=== PATIENT | female | born 1940 | race Caucasian/White ===

== ENCOUNTER 2017-07-21 16:33 | Emergency (ER) | payer MEDICARE ==
[2017-07-21 17:56] LABS: ABSOLUTE BASOPHILS # (AUTO) 0.1 10^3/uL (0.0-0.2); ABSOLUTE EOSINOPHILS # (AUTO) 0.1 10^3/uL (0.0-0.6); ABSOLUTE LYMPHOCYTES (AUTO) 1.2 10^3/uL (0.5-4.7); ABSOLUTE MONOCYTES (AUTO) 0.6 10^3/uL (0.1-1.4); ABSOLUTE NEUT (AUTO) 6.3 10^3/uL (1.7-8.2); BASOPHILS % (AUTO) 0.9 % (0-2); EOSINOPHILS % (AUTO) 1.8 % (0-6); HEMATOCRIT 22.8 % (36.0-47.0); MEAN CORPUSCULAR HEMOGLOBIN 28.7 pg (27.0-33.4); MEAN CORPUSCULAR HGB CONC 32.8 g/dL (32.0-36.0); MEAN CORPUSCULAR VOLUME 88 fl (80-97); MONOCYTES % (AUTO) 7.8 % (3-13); PLATELET COUNT 281 10^3/uL (150-450); RED BLOOD COUNT 2.61 10^6/uL (3.72-5.28); RED CELL DISTRIBUTION WIDTH 19.3 % (11.5-14.0); SEGMENTED NEUTROPHILS % (AUTO) 75.5 % (42-78); TOTAL CELLS COUNTED % (AUTO) 100 %; WHITE BLOOD COUNT 8.3 10^3/uL (4.0-10.5)
[2017-07-21 17:59] LABS: HEMOGLOBIN 7.5 g/dL (12.0-15.5)
[2017-07-21 18:10] LABS: ALANINE AMINOTRANSFERASE 39 U/L (9-52); ALBUMIN 1.5 g/dL (3.5-5.0); ALKALINE PHOSPHATASE 120 U/L (38-126); ASPARTATE AMINO TRANSFERASE 32 U/L (14-36); BILIRUBIN,DIRECT 0.2 mg/dL (0.0-0.4); BILIRUBIN,TOTAL 0.2 mg/dL (0.2-1.3); BLOOD UREA NITROGEN 14 mg/dL (7-20); CALCIUM 7.5 mg/dL (8.4-10.2); GLUCOSE 67 mg/dL (75-110); TOTAL PROTEIN 4.6 g/dL (6.3-8.2)
[2017-07-21 18:17] LABS: ANION GAP 1 (5-19); CARBON DIOXIDE 28 mmol/L (22-30); CHLORIDE 111 mmol/L (98-107); POTASSIUM 5.3 mmol/L (3.6-5.0); SODIUM 140.4 mmol/L (137-145)
[2017-07-21 19:33] LABS: AMORPHOUS SEDIMENT,URINE TRACE /HPF; APPEARANCE,URINE CLOUDY; BILIRUBIN,URINE NEGATIVE (NEGATIVE); COLOR,URINE AMBER; GLUCOSE, URINE NEGATIVE (NEGATIVE); KETONES,URINE NEGATIVE (NEGATIVE); LEUKOCYTE ESTERASE,URINE MODERATE (NEGATIVE); NITRITE,URINE NEGATIVE (NEGATIVE); PROTEIN,URINE NEGATIVE (NEGATIVE); URINE SPECIFIC GRAVITY 1.012; UROBILINOGEN,URINE NEGATIVE mg/dL (<2.0)
--- NOTE | 2017-07-21 20:35 | ER Document Report ---
ED General - General Mode of Arrival: Medic Information source: Patient, Relative <CARMEN JOSEPH - Last Filed: 07/21/17 22:04> <DIAMOND HOFF - Last Filed: 07/22/17 00:49> <ANDREW CISNEROS - Last Filed: 07/22/17 03:38> - General Chief Complaint: Abnormal Lab Results Stated Complaint: ABNORMAL LABS Time Seen by Provider: 07/21/17 18:35 Notes: 77 y.o female with a PMHx of hernia repair, trapped bowel and bowel surgery , diverticulitis, chronic diarrhea for the past 4 months and stomach ulcers presents to the ED with abnormal lab results showing that she was anemic. Pt denies any known sources of bleeding. Daughter at bedside states that this started with stomach surgery after which she became septic and hospitalized at [facility]. Pt complains of bilateral leg pain and pack pain which she reports is chronic. Pt denies any abd pain or fever. She admits to some intermittent trouble breathing that hasn't really bothered her. Pt does not have any complaints for any new sx. Pt is usually on 4 liters of oxygen. ( CARMEN JOSEPH) - Related Data Allergies/Adverse Reactions: aspirin Allergy (Verified 07/21/17 18:54) NSAIDS (Non-Steroidal Anti-Inflamma Allergy (Verified 07/21/17 18:54) Past Medical History - General Information source: Patient, Relative - Social History Smoking Status: Former Smoker Patient has suicidal ideation: No Patient has homicidal ideation: No - Past Medical History Cardiac Medical History: Reports: Hx Hypertension Pulmonary Medical History: Reports: Hx COPD Endocrine Medical History: Reports: Hx Diabetes Mellitus Type 2 Renal/ Medical History: Denies: Hx Peritoneal Dialysis Past Surgical History: Reports: Hx Abdominal Surgery - Hernia repair x3, Hx Cholecystectomy <CARMEN JOSEPH - Last Filed: 07/21/17 22:04> - Social History Family History: Reviewed & Not Pertinent <ANDREW CISNEROS - Last Filed: 07/22/17 03:38> Review of Systems - Review of Systems Constitutional: See HPI. denies: Fever EENT: No symptoms reported Cardiovascular: No symptoms reported Respiratory: See HPI, Short of breath Gastrointestinal: See HPI. denies: Abdominal pain Genitourinary: No symptoms reported Female Genitourinary: No symptoms reported Musculoskeletal: See HPI, Back pain, Other - Bilat lower extremity pain Skin: No symptoms reported Hematologic/Lymphatic: See HPI, Other - abnormal lab results showing anemia Neurological/Psychological: No symptoms reported -: Yes All other systems reviewed and negative <CARMEN JOSEPH - Last Filed: 07/21/17 22:04> Physical Exam - Vital signs Interpretation: Hypotensive, Tachycardic - General General appearance: Alert In distress: Mild - Respiratory Respiratory status: No respiratory distress Breath sounds: Decreased air movement, Rales - at bases b/l - Cardiovascular Rhythm: Regular, Tachycardia - Abdominal Inspection: Normal, Obese, Other - Healing incision, no erythema or fluctuance - Rectal Tenderness: No Stool: Heme negative - Back Back: Other - Sacral decubitus ulcer, dressed - Extremities General upper extremity: Normal inspection General lower extremity: Edema - b/l - Neurological Neuro grossly intact: Yes Cognition: Normal Orientation: AAOx4 Ariel Coma Scale Eye Opening: Spontaneous Ariel Coma Scale Verbal: Oriented Yola Coma Scale Motor: Obeys Commands Yola Coma Scale Total: 15 Speech: Normal Motor strength normal: LUE, RUE, LLE, RLE Sensory: Normal - Skin Skin Color: Pale <ANDREW CISNEROS - Last Filed: 07/22/17 03:38> - Vital signs Vitals: Pulse Ox 100 07/21/17 17:41 Course - Laboratory Result Diagrams: 07/21/17 17:40 07/21/17 17:40 <CARMEN JOSEPH - Last Filed: 07/21/17 22:04> - Laboratory Result Diagrams: 07/21/17 17:40 07/21/17 17:40 <DIAMOND HOFF - Last Filed: 07/22/17 00:49> - Laboratory Result Diagrams: 07/22/17 01:43 07/21/17 17:40 - Diagnostic Test Radiology reviewed: Reports reviewed <ANDREW CISNEROS - Last Filed: 07/22/17 03:38> - Re-evaluation Re-evalutation: 07/21/17 21:35 Discussed pt with [employer]. (CARMEN JOSEPH) 07/22/17 21:45 Rell requests surgery be consulted/admit 07/22/17 21:55 Rosanne states patient should be transferred back to [facility] 07/22/17 22:10 Call back to [facility] about potential transfer 07/22/17 00:45 at [facility] accepts patient but there are no beds (DIAMOND HOFF) 07/22/17 01:00 Patient is a 77-year-old female with a recent complicated hospital course who presents due to anemia on outpatient blood work. Patient was admitted at [facility] in March for strangulated bowel and hernia repair. She was readmitted in June after developing an intraperitoneal abscess. Patient's hemoglobin at the time of discharge was 6.9. Patient was sent in this evening for an outpatient hemoglobin of 6.5. Here it is 7.5. Patient has been hypotensive. She is stable at rest on her nasal cannula of 2 L. She is on Eliquis for a DVT. She does not have any abdominal pain but is complaining of back pain. UTI and urinalysis. CT was performed and is showing a fluid collection in the perirenal space on the left, concerning for possible abscess. Patient was discussed with the surgical service at [facility]. Discussed with hospitalist and surgical service here who recommended the patient be transferred if she were to need further evaluation by other services such as urology. Patient and family are agreeable to this plan. Cultures have been sent patient has been given Rocephin as well as a 500 cc fluid bolus because of her persistent hypotension which is lower than her baseline. She would not be able to tolerate nitroglycerin or Lasix for her fluid overload due to her blood pressure. Hemoglobin was repeated here and has remained stable. Patient will require further evaluation of her anemia, UTI, potential abscess, what appears to be heart failure, management of DVT in light of anemia. Urine and blood cultures have been sent. Patient and family are agreeable to transfer. 07/22/17 03:26 Patient remained stable for transfer. There are not going to be beds available until the morning. Due to fluid overload and inability to give nitro or Lasix, patient will be placed on BiPAP while she was asleep to try to help with fluid overload. (ANDREW CISNEROS) - Vital Signs Vital signs: Temp Pulse Resp BP Pulse Ox 97.7 F 25 H 108/47 L 96 07/21/17 23:45 07/22/17 02:14 07/22/17 02:14 07/22/17 02:00 - Laboratory Laboratory results interpreted by me: 07/21/17 07/21/17 07/21/17 17:40 17:40 17:40 RBC 2.61 L Hgb 7.5 L Hct 22.8 L RDW 19.3 H PT APTT Potassium 5.3 H Chloride 111 H Anion Gap 1 L Est GFR (Non-Af Amer) 51 L Glucose 67 L Calcium 7.5 L NT-Pro-B Natriuret Pep 3600 H Total Protein 4.6 L Albumin 1.5 L Ur Leukocyte Esterase Urine Ascorbic Acid Crossmatch 07/21/17 07/21/17 07/21/17 17:40 19:08 19:19 RBC Hgb Hct RDW PT 20.2 H APTT 44.3 H Potassium Chloride Anion Gap Est GFR (Non-Af Amer) Glucose Calcium NT-Pro-B Natriuret Pep Total Protein Albumin Ur Leukocyte Esterase MODERATE H Urine Ascorbic Acid 20 H Crossmatch See Detail 07/22/17 01:43 RBC 2.56 L Hgb 7.6 L Hct 22.7 L RDW 19.5 H PT APTT Potassium Chloride Anion Gap Est GFR (Non-Af Amer) Glucose Calcium NT-Pro-B Natriuret Pep Total Protein Albumin Ur Leukocyte Esterase Urine Ascorbic Acid Crossmatch Critical Care Note - Critical Care Note Total time excluding time spent on procedures (mins): 90 - Evaluation and management of anemia, UTI, probable heart failure, fluid collection, consultation with specialist, coordination of transfer, counseling of patient and family, multiple re-evaluations <ANDREW CISNEROS - Last Filed: 07/22/17 03:38> Discharge <CARMEN JOSEPH - Last Filed: 07/21/17 22:04> <DIAMOND HOFF - Last Filed: 07/22/17 00:49> <ANDREW CISNEROS - Last Filed: 07/22/17 03:38> - Discharge Clinical Impression: Pararenal fluid collection Hypotension Qualifiers: Hypotension type: unspecified hypotension type Qualified Code(s): I95.9 - Hypotension, unspecified UTI (urinary tract infection) Qualifiers: Urinary tract infection type: site unspecified Hematuria presence: with hematuria Qualified Code(s): N39.0 - Urinary tract infection, site not specified ; R31.9 - Hematuria, unspecified; R31.9 - Hematuria, unspecified Acute heart failure Qualifiers: Heart failure type: unspecified Qualified Code(s): I50.9 - Heart failure, unspecified Condition: Stable Disposition: [facility] Referrals: DANK WREN MD [Primary Care Provider] - Follow up as needed Scribe Attestation: 07/22/17 03:37 I personally performed the services described in the documentation, reviewed and edited the documentation which was dictated to the scribe in my presence, and it accurately records my words and actions. (ANDREW CISNEROS) Scribe Documentation - Scribe Written by Chikis:: Chikis Finney 07/21/[id number] acting as scribe for :: Flex <CARMEN JOSEPH - Last Filed: 07/21/17 22:04>
--- NOTE | 2017-07-21 21:05 | RADIOLOGY REPORT (SQ) ---
EXAM DESCRIPTION: CHEST SINGLE VIEW COMPLETED DATE/TIME: 07/21/2017 8:57 pm REASON FOR STUDY: SOB, evaluate for CHF COMPARISON: None. NUMBER OF VIEWS: One view. TECHNIQUE: Single frontal radiographic view of the chest acquired. LIMITATIONS: None. FINDINGS: LUNGS AND PLEURA: Underlying emphysema. Mild interstitial edema with small bilateral pleu ral effusions. MEDIASTINUM AND HILAR STRUCTURES: No masses or contour abnormality. HEART AND VASCULATURE: Cardiac enlargement. Vascular congestion. BONES: No acute findings. HARDWARE: None in the chest. OTHER: No other significant finding. IMPRESSION: MILD PULMONARY EDEMA SUPERIMPOSED ON CHRONIC LUNG DISEASE. TECHNICAL DOCUMENTATION: JOB ID: [id number] [employer]- All Rights Reserved Reading location - IP/workstation name: [email or web address]
[2017-07-21] MEDS ORDERED: FENTANYL CITRATE INJ/PF 100 MCG/2 ML AMPUL IV ONE (21:09)
[2017-07-21 21:12] LABS: INTERNATIONAL RATION (INR) 1.64; PARTIAL THROMBOPLASTIN TIME 44.3 SEC (23.5-35.8); PROTHROMBIN TIME 20.2 SEC (11.4-15.4)
[2017-07-21] MEDS ORDERED: FUROSEMIDE INJ/PF 40 MG/4 ML SDV IV ONE (21:27)
[2017-07-21] MEDS ORDERED: IPRATROPIUM/ALBUTEROL 0.5-2.5 MG/3 ML AMPUL NEB ONE (21:39)
[2017-07-21] MEDS ORDERED: CEFTRIAXONE 1 GM/D5W RTU 1 GM/50 ML RTUPB IV ONE ×2 (21:56→22:52)
--- NOTE | 2017-07-21 22:40 | RADIOLOGY REPORT (SQ) ---
EXAM DESCRIPTION: CT ABD/PELVIS NO ORAL OR IV COMPLETED DATE/TIME: 07/21/2017 10:21 pm REASON FOR STUDY: evaluate for infection/bleeding COMPARISON: None. TECHNIQUE: CT scan of the abdomen and pelvis performed without intravenous or oral contrast. Images reviewed with lung, soft tissue, and bone windows. Reconstructed coronal and sagittal MPR images revi ewed. All images stored on PACS. All CT scanners at this facility use dose modulation, iterative reconstruction, and/or weight based d osing when appropriate to reduce radiation dose to as low as reasonably achievable (ALARA). [facility]: Dose Right [facility]: CareDose [facility]: Dose Right [facility]: Teradose 4D [facility]: Smart Wiz Maps RADIATION DOSE: CT Rad equipment meets quality standard of care and radiation dose reduction techniq ues were employed. CTDIvol: 26.0 mGy. DLP: 1317 mGy-cm.mGy. LIMITATIONS: Lack of contrast material. FINDINGS: LOWER CHEST: Emphysema. Small bilateral pleural effusions. NON-CONTRASTED LIVER, SPLEEN, ADRENALS: Evaluation limited by lack of IV contrast. No identified sign ificant masses. PANCREAS: No masses. No peripancreatic inflammatory changes. GALLBLADDER: Surgically absent. RIGHT KIDNEY AND URETER: No suspicious masses. Assessment limited by lack of IV contrast. No signif icant calcifications. No hydronephrosis or hydroureter. LEFT KIDNEY AND URETER: No suspicious masses. Assessment limited by lack of IV contrast. No signifi cant calcifications. No hydronephrosis or hydroureter. AORTA AND RETROPERITONEUM: Atherosclerotic calcifications. No aneurysm. No retroperitoneal masses or adenopathy. BOWEL AND PERITONEAL CAVITY: Scattered colonic diverticula without acute inflammatory change. Postsu rgical change related to partial bowel resection with reanastomosis. There is a simple appearing flu id collection within the left posterior pararenal space seen on axial image 32 and coronal image 54 m easuring 5.9 x 2.6 x 5.7 cm. APPENDIX: Presumed to be surgically absent. PELVIS, BLADDER, AND ABDOMINAL WALL:There is a defect involving the ventral abdominal wall at the lev el of the emboli kiss measuring 3.0 x 3.1 cm. There is diffuse body wall edema compatible with anasa rca. Trace free fluid in the pelvis. Bladder normal. BONES: No significant findings. OTHER: No other significant finding. IMPRESSION: NO DEFINITE ACUTE INFLAMMATORY CHANGE IDENTIFIED ON THIS NONCONTRAST CT OF THE ABDOMEN A ND PELVIS. THERE IS A FOCAL 5.9 CM SIMPLE APPEARING FLUID COLLECTION WITHIN THE LEFT POSTERIOR PARAR ENAL SPACE WHICH COULD REPRESENT TRAPPED FLUID, CHRONIC HEMORRHAGE, OR POTENTIALLY ABSCESS. CORRELAT E WITH ANY HISTORY OF TRAUMA, FEVER/ ELEVATED WHITE BLOOD CELL COUNT, AND OTHER LABORATORY VALUES. DEFECT INVOLVING THE VENTRAL ABDOMINAL WALL COULD REPRESENT WOUND DEHISCENCE. CORRELATE WITH PHYSICA L EXAM FINDINGS. SMALL BILATERAL PLEURAL EFFUSIONS AND ANASARCA COMPATIBLE WITH 3RD SPACING. ADDITIONAL CHRONIC CHANGES ABOVE. COMMENT: Quality ID # [id number]: Final reports with documentation of one or more dose reduction techniques (e.g., Automated exposure control, adjustment of the mA and/or kV according to patient size, use of iterative reconstruction technique) TECHNICAL DOCUMENTATION: JOB ID: [id number] [employer]- All Rights Reserved Reading location - IP/workstation name: [email or web address]
[2017-07-22] MEDS ORDERED: NORMAL SALINE 500 ML IV ONE (00:46)
[2017-07-22] MEDS ORDERED: NORMAL SALINE 250 ML IV PRN (01:15)
[2017-07-22 01:52] LABS: ABSOLUTE BASOPHILS # (AUTO) 0.1 10^3/uL (0.0-0.2); ABSOLUTE EOSINOPHILS # (AUTO) 0.1 10^3/uL (0.0-0.6); ABSOLUTE LYMPHOCYTES (AUTO) 1.5 10^3/uL (0.5-4.7); ABSOLUTE MONOCYTES (AUTO) 0.8 10^3/uL (0.1-1.4); ABSOLUTE NEUT (AUTO) 5.6 10^3/uL (1.7-8.2); BASOPHILS % (AUTO) 1.1 % (0-2); EOSINOPHILS % (AUTO) 1.5 % (0-6); HEMATOCRIT 22.7 % (36.0-47.0); LYMPHOCYTES % (AUTO) 18.7 % (13-45); MEAN CORPUSCULAR HEMOGLOBIN 29.5 pg (27.0-33.4); MEAN CORPUSCULAR HGB CONC 33.3 g/dL (32.0-36.0); MEAN CORPUSCULAR VOLUME 89 fl (80-97); MONOCYTES % (AUTO) 9.8 % (3-13); PLATELET COUNT 277 10^3/uL (150-450); RED BLOOD COUNT 2.56 10^6/uL (3.72-5.28); RED CELL DISTRIBUTION WIDTH 19.5 % (11.5-14.0); SEGMENTED NEUTROPHILS % (AUTO) 68.9 % (42-78); TOTAL CELLS COUNTED % (AUTO) 100 %; WHITE BLOOD COUNT 8.1 10^3/uL (4.0-10.5)
[2017-07-22 01:54] LABS: HEMOGLOBIN 7.6 g/dL (12.0-15.5)
[2017-07-22] MEDS ORDERED: FENTANYL CITRATE INJ/PF 100 MCG/2 ML AMPUL IV ONE (03:06)
--- NOTE | 2017-07-22 08:14 | EKG REPORT ---
SEVERITY:- ABNORMAL ECG - SINUS TACHYCARDIA PROBABLE LEFT ATRIAL ABNORMALITY RIGHT BUNDLE BRANCH BLOCK : Confirmed by: Danuta Brock MD 22-Jul-2017 08:13:43
--- NOTE | 2017-07-22 08:39 | ER Document Report ---
Doctor's Note Notes: 07/22/17 08:40 On patient's evaluation, she is resting comfortably on BiPAP, her pressures have improved, Cecil is on a bed delay,, I will give her a break from the bipap at her request , per transfer center patient will not be going to surgery any time soon, i will feed her as well
[2017-07-22] MEDS ORDERED: OXYCODONE-ACETAMINOPHEN 5-325 MG TABLET PO ONE (13:20)
[2017-07-22 16:54] LABS: ABSOLUTE BASOPHILS # (AUTO) 0.1 10^3/uL (0.0-0.2); ABSOLUTE EOSINOPHILS # (AUTO) 0.1 10^3/uL (0.0-0.6); ABSOLUTE LYMPHOCYTES (AUTO) 1.6 10^3/uL (0.5-4.7); ABSOLUTE MONOCYTES (AUTO) 0.7 10^3/uL (0.1-1.4); ABSOLUTE NEUT (AUTO) 5.3 10^3/uL (1.7-8.2); EOSINOPHILS % (AUTO) 1.6 % (0-6); HEMATOCRIT 23.5 % (36.0-47.0); LYMPHOCYTES % (AUTO) 20.4 % (13-45); MEAN CORPUSCULAR HEMOGLOBIN 28.7 pg (27.0-33.4); MEAN CORPUSCULAR HGB CONC 32.6 g/dL (32.0-36.0); MEAN CORPUSCULAR VOLUME 88 fl (80-97); MONOCYTES % (AUTO) 9.2 % (3-13); PLATELET COUNT 266 10^3/uL (150-450); RED BLOOD COUNT 2.66 10^6/uL (3.72-5.28); RED CELL DISTRIBUTION WIDTH 19.2 % (11.5-14.0); SEGMENTED NEUTROPHILS % (AUTO) 67.8 % (42-78); TOTAL CELLS COUNTED % (AUTO) 100 %; WHITE BLOOD COUNT 7.8 10^3/uL (4.0-10.5)
[2017-07-22 16:58] LABS: HEMOGLOBIN 7.6 g/dL (12.0-15.5)
[2017-07-22 17:18] LABS: ALANINE AMINOTRANSFERASE 36 U/L (9-52); ALBUMIN 1.5 g/dL (3.5-5.0); ALKALINE PHOSPHATASE 126 U/L (38-126); ASPARTATE AMINO TRANSFERASE 34 U/L (14-36); BILIRUBIN,DIRECT 0.2 mg/dL (0.0-0.4); BILIRUBIN,TOTAL 0.2 mg/dL (0.2-1.3); BLOOD UREA NITROGEN 13 mg/dL (7-20); CALCIUM 7.5 mg/dL (8.4-10.2); GLUCOSE 86 mg/dL (75-110); POTASSIUM 4.9 mmol/L (3.6-5.0); TOTAL PROTEIN 4.7 g/dL (6.3-8.2)
[2017-07-22 17:23] LABS: CARBON DIOXIDE 27 mmol/L (22-30); CHLORIDE 111 mmol/L (98-107); SODIUM 141.6 mmol/L (137-145)
[2017-07-22 17:25] LABS: ANION GAP 4 (5-19)
[2017-07-22] MEDS: CEFTRIAXONE 1 GM/D5W RTU 1 GM/50 ML RTUPB IV SCH (23:07)
[2017-07-23] MEDS ORDERED: IPRATROPIUM/ALBUTEROL 0.5-2.5 MG/3 ML AMPUL NEB PRN (02:59)
[2017-07-23] MEDS: CEFTRIAXONE 1 GM/D5W RTU 1 GM/50 ML RTUPB IV SCH (09:52)
[2017-07-23] MEDS ORDERED: LACTOBACILLUS ACIDOPHILUS 250 MG TAB PO SCH (10:00)
[2017-07-23] MEDS ORDERED: APIXABAN 5 MG TABLET PO SCH (10:00)
[2017-07-23] MEDS ORDERED: LANSOPRAZOLE 30 MG TAB.RAP.DR PO SCH (10:00)
[2017-07-23] MEDS ORDERED: CHOLESTYRAMINE/ASPARTAME 4 GM PACKET PO SCH (10:00)
[2017-07-23] MEDS ORDERED: SIMVASTATIN 10 MG TABLET PO SCH (10:00)
[2017-07-23] MEDS ORDERED: APIXABAN 5 MG TABLET PO ONE (10:00)
[2017-07-23] MEDS ORDERED: FERROUS SULFATE 325 MG TABLET PO SCH (10:00)
[2017-07-23] MEDS ORDERED: FLUCONAZOLE 100 MG TABLET PO ONE (10:45)
--- NOTE | 2017-07-23 10:46 | ER Document Report ---
Doctor's Note Notes: 07/23/17 10:46 Patient is calm and cooperative in no acute distress. Patient is sleeping. We have changed the patient's abdominal wound. Patient has had no fevers or vomiting. We have provided Diflucan given the urine analysis previous results. Patient will be transferred today to [facility].
[2017-07-23] MEDS ORDERED: CEFTRIAXONE RTU 1 GM/D5W 50 ML IV ONE (10:47)
[2017-07-23 21:32] VITALS: BP 104/65
--- NOTE | 2017-07-23 21:33 | ER Document Report ---
Doctor's Note Notes: 07/23/17 21:32 Transport here for the patient. I re-evaluated the patient. Her vitals signs are stable. No complaints at this time. Patient is stable for transport.
== END 2017-07-23 21:50 | disposition short-term general hospital (02) ==
LOC: ER 16:33
DX: R18.8 Other ascites (principal); I95.9 Hypotension, unspecified; I11.0 Hypertensive heart disease with heart failure; I50.9 Heart failure, unspecified; E87.70 Fluid overload, unspecified; N39.0 Urinary tract infection, site not specified; R31.9 Hematuria, unspecified; D64.9 Anemia, unspecified; I82.409 Acute embolism and thrombosis of unspecified deep veins of unspecified lower extremity; R00.0 Tachycardia, unspecified; I45.10 Unspecified right bundle-branch block; R19.7 Diarrhea, unspecified; R06.02 Shortness of breath; L89.159 Pressure ulcer of sacral region, unspecified stage; M79.604 Pain in right leg; M79.605 Pain in left leg; M54.9 Dorsalgia, unspecified; G89.29 Other chronic pain; E11.9 Type 2 diabetes mellitus without complications; J44.9 Chronic obstructive pulmonary disease, unspecified; Z99.81 Dependence on supplemental oxygen; Z88.6 Allergy status to analgesic agent; Z88.8 Allergy status to other drugs, medicaments and biological substances; Z87.891 Personal history of nicotine dependence; Z98.890 Other specified postprocedural states; Z87.19 Personal history of other diseases of the digestive system; Z79.01 Long term (current) use of anticoagulants
CPT/HCPCS: 93005; 96376; 99285; 96361; 96375; 96365; 86900; 86901; 36415; 87040; 87086; 86850; 82962; 84443; 85025; 85610; 85730; 82272; 87077; 80048; 80053; 81001; 86920; 83880; 71045; 74176; 93010; 94660; A9270 ×4; J3010 ×2; J1940; J7040; J0696 ×3; J7620

== ENCOUNTER 2017-09-04 15:32 | Emergency (ER) | payer MEDICARE ==
--- NOTE | 2017-09-04 16:20 | ER Document Report ---
ED General - General Mode of Arrival: Medic Information source: Patient TRAVEL OUTSIDE OF THE [place] IN LAST 30 DAYS: No <TENA DIAZ - Last Filed: 09/04/17 21:51> <JOELLEKAELAJUAN J - Last Filed: 09/04/17 22:34> - General Chief Complaint: Abnormal Lab Results Stated Complaint: BLOOD LEVELS ISSUE Time Seen by Provider: 09/04/17 15:57 Notes: Pt is a 77 year old female with a history of CHF, HTN, COPD, bleeding ulcers who presents to the ER today for low hemoglobin after getting bloodwork drawn today and being told at prison she needed to come get a "blood transfusion." Pt has been to [facility] recently for the same issue, states they couldn't "figure out where I was bleeding from." She states that she was told she needed blood then too, but refused it "because I'm a DNR." Pt herself is a poor historian, but alert and oriented to person, place and time. She denies any vomiting at all, nausea, abdominal pain, blood in her stool. She admits to diarrhea but states that is normal for her. She states she hasn't really been looking at her stool, she wears an adult diaper and has to have someone change her. She denies blood thinner use. She is always on 3L of O2 at home and prison. (TENA DIAZ) - Related Data Allergies/Adverse Reactions: aspirin Allergy (Verified 07/21/17 18:54) NSAIDS (Non-Steroidal Anti-Inflamma Allergy (Verified 07/21/17 18:54) Past Medical History - General Information source: Patient, Relative - daughter - Social History Smoking Status: Never Smoker Family History: Reviewed & Not Pertinent Patient has suicidal ideation: No Patient has homicidal ideation: No - Past Medical History Cardiac Medical History: Reports: Hx Hypertension Pulmonary Medical History: Reports: Hx COPD Endocrine Medical History: Reports: Hx Diabetes Mellitus Type 2 Renal/ Medical History: Denies: Hx Peritoneal Dialysis Past Surgical History: Reports: Hx Abdominal Surgery - Hernia repair x3, Hx Cholecystectomy <TENA DIAZ - Last Filed: 09/04/17 21:51> Review of Systems - Review of Systems Constitutional: No symptoms reported EENT: No symptoms reported Cardiovascular: No symptoms reported Respiratory: No symptoms reported Gastrointestinal: See HPI Genitourinary: No symptoms reported Female Genitourinary: No symptoms reported Musculoskeletal: No symptoms reported Skin: No symptoms reported Hematologic/Lymphatic: No symptoms reported Neurological/Psychological: No symptoms reported <TENA DIAZ - Last Filed: 09/04/17 21:51> Physical Exam <TENA DIAZ - Last Filed: 09/04/17 21:51> <JUAN J ROWE - Last Filed: 09/04/17 22:34> - Vital signs Vitals: Temp Resp BP Pulse Ox 97.6 F 18 93/73 L 94 09/04/17 15:39 09/04/17 15:39 09/04/17 15:39 09/04/17 15:39 - Notes Notes: PHYSICAL EXAMINATION: GENERAL: on nasal cannula oxygen, in no acute distress. HEAD: Atraumatic, normocephalic. EYES: Pupils equal round and reactive to light, extraocular movements intact, sclera anicteric, conjunctiva are normal. ENT: airway patent NECK: Normal range of motion, supple without lymphadenopathy LUNGS: mild rales throughout, no rhonchi or wheezes HEART: tachycardic with regular rhythm without murmurs ABDOMEN: Soft, no tenderness. No guarding, no rebound BACK: no vertebral tenderness, normal ROM rectal: pressure ulcer bandaged above anus, incontinent of stool, no obvious bleeding GI/: no CVA tenderness EXTREMITIES: Normal range of motion, no pitting edema. No cyanosis. NEUROLOGICAL: Cranial nerves grossly intact. Normal sensory/motor exams. PSYCH: Normal mood, normal affect. SKIN: Warm, Dry, normal turgor, no rashes or lesions noted (TENA DIAZ) Course - Laboratory Result Diagrams: 09/04/17 15:48 09/04/17 15:48 <TENA DIAZ - Last Filed: 09/04/17 21:51> - Laboratory Result Diagrams: 09/04/17 15:48 09/04/17 15:48 <JAEJUAN J - Last Filed: 09/04/17 22:34> - Re-evaluation Re-evalutation: 09/04/17 18:53 stool occult positive. Pt has hgb of 9.2 here, is hypotensive and mildly tachycardic at 105bpm average and initially was 105/75 bp but has dropped to as low as 70/35 with her average now being 80s/40s. Pt given 500 cc bolus of IV fluids and blood ordered, I do believe her hgb is lower and she is dehydrated as her creatinine is also bumped and I believe she's hemoconcentrated causing her hgb to be higher than it actually is. Pt has vascular congestion and pulmonary edema on chest x ray, possible opacities pneumonia vs pleural effusions with no fever. Dr. Zuleta consulted and agrees with plan, no vasopressors will be started yet, we will give blood first. Dr. Gama, pelts skinner at [facility] accepts transfer at this time for GI bleed, hypotension as we have no GI construction contractor here. (TENA DIAZ) 09/04/17 20:40 Patient reevaluated again at bedside. Blood pressure at first improved and now she is hypotensive again. She is mildly tachycardic at 108 with pulse oxygen saturation at 95 on 2L nc. She is not in respiratory distress. She has 2 peripheral IV access lines. She is alert and oriented. Chest x-ray showing pulmonary vascular congestion and possible consolidations, leukocytosis is mild but does have left shift, starting cefepime antibiotics. She already has blood infusing. She has not had any bloody bowel movements here that she tells me or that nursing informs me of. Unable to fly due to weather, transport team about 30 minutes away. 09/04/17 22:00 Patient reevaluated again, transfer delayed, current blood pressure is 107/75, no significant change from prior. 09/04/17 22:30 Transport team is here, map still greater than 65, patient unchanged from prior. Holding second unit of blood because she has not had any additional bloody bowel movements and she has evidence of vascular congestion on chest x- ray and questionably on exam. Patient has received antibiotics. Stable for transport. (JUAN J ROWE) - Vital Signs Vital signs: Temp Pulse Resp BP Pulse Ox 98.4 F 106 H 30 H 97/66 L 96 09/04/17 22:21 09/04/17 20:22 09/04/17 22:21 09/04/17 22:21 09/04/17 22:21 - Laboratory Laboratory results interpreted by me: 09/04/17 09/04/17 09/04/17 15:48 15:48 15:48 WBC 11.4 H RBC 3.23 L Hgb 9.2 L Hct 28.1 L RDW 16.9 H Seg Neuts % (Manual) 79 H Lymphocytes % (Manual) 9 L Abs Neuts (Manual) 9.0 H PT 20.5 H APTT 48.0 H Chloride 109 H Carbon Dioxide 21 L BUN 25 H Creatinine 1.71 H Est GFR ( Amer) 35 L Est GFR (Non-Af Amer) 29 L Calcium 7.5 L Alkaline Phosphatase 143 H Total Protein 5.5 L Albumin 1.7 L Crossmatch 09/04/17 15:48 WBC RBC Hgb Hct RDW Seg Neuts % (Manual) Lymphocytes % (Manual) Abs Neuts (Manual) PT APTT Chloride Carbon Dioxide BUN Creatinine Est GFR ( Amer) Est GFR (Non-Af Amer) Calcium Alkaline Phosphatase Total Protein Albumin Crossmatch See Detail Discharge <TENA DIAZ - Last Filed: 09/04/17 21:51> <JUAN J ROWE - Last Filed: 09/04/17 22:34> - Discharge Clinical Impression: GI bleed Qualifiers: GI bleed type/associated pathology: unspecified gastrointestinal hemorrhage type Qualified Code(s): K92.2 - Gastrointestinal hemorrhage, unspecified Hypotension Qualifiers: Hypotension type: unspecified hypotension type Qualified Code(s): I95.9 - Hypotension, unspecified Condition: Stable Disposition: [facility] Referrals: TORITO CISNEROS DO [Primary Care Provider] - Follow up as needed
[2017-09-04 16:32] LABS: ALANINE AMINOTRANSFERASE 30 U/L (9-52); ALBUMIN 1.7 g/dL (3.5-5.0); ALKALINE PHOSPHATASE 143 U/L (38-126); ANION GAP 10 (5-19); ASPARTATE AMINO TRANSFERASE 26 U/L (14-36); BILIRUBIN,DIRECT 0.3 mg/dL (0.0-0.4); BILIRUBIN,TOTAL 0.3 mg/dL (0.2-1.3); BLOOD UREA NITROGEN 25 mg/dL (7-20); CALCIUM 7.5 mg/dL (8.4-10.2); CARBON DIOXIDE 21 mmol/L (22-30); CHLORIDE 109 mmol/L (98-107); GLUCOSE 84 mg/dL (75-110); POTASSIUM 4.5 mmol/L (3.6-5.0); SODIUM 139.5 mmol/L (137-145); TOTAL PROTEIN 5.5 g/dL (6.3-8.2)
[2017-09-04 16:37] LABS: HEMATOCRIT 28.1 % (36.0-47.0); HEMOGLOBIN 9.2 g/dL (12.0-15.5); INTERNATIONAL RATION (INR) 1.67; MEAN CORPUSCULAR HEMOGLOBIN 28.5 pg (27.0-33.4); MEAN CORPUSCULAR HGB CONC 32.8 g/dL (32.0-36.0); MEAN CORPUSCULAR VOLUME 87 fl (80-97); PLATELET COUNT 385 10^3/uL (150-450); PROTHROMBIN TIME 20.5 SEC (11.4-15.4); RED BLOOD COUNT 3.23 10^6/uL (3.72-5.28); RED CELL DISTRIBUTION WIDTH 16.9 % (11.5-14.0); WHITE BLOOD COUNT 11.4 10^3/uL (4.0-10.5)
[2017-09-04 17:21] LABS: BASOPHILS % (MANUAL) 0 % (0-2); EOSINOPHILS % (MANUAL) 3 % (0-6); LYMPHOCYTES % (MANUAL) 9 % (13-45); MONOCYTES % (MANUAL) 9 % (3-13); SEGMENTED NEUTROPHILS % (MAN) 79 % (42-78); TOTAL CELLS COUNTED 100
[2017-09-04 17:22] LABS: OVALOCYTES SLIGHT; POIKILOCYTOSIS SLIGHT; TARGET CELLS SLIGHT
[2017-09-04 17:23] LABS: PLATELET COMMENT ADEQUATE
[2017-09-04] MEDS: NORMAL SALINE 1000 ML 500 ML IV ONE (17:41)
[2017-09-04] MEDS ORDERED: NORMAL SALINE 250 ML IV PRN (18:18)
--- NOTE | 2017-09-04 18:29 | RADIOLOGY REPORT (SQ) ---
EXAM DESCRIPTION: CHEST SINGLE VIEW COMPLETED DATE/TIME: 09/04/2017 5:50 pm REASON FOR STUDY: hypotensive, tachycardic COMPARISON: Chest x-ray 07/21/2017. CT abdomen and pelvis 07/21/2017 EXAM PARAMETERS: NUMBER OF VIEWS: One view. TECHNIQUE: Single frontal radiographic view of the chest acquired. RADIATION DOSE: NA LIMITATIONS: None. FINDINGS: LUNGS AND PLEURA: Hyperlucent lungs are suggestive of emphysema. There are small bilatera l pleural effusions with bibasilar airspace opacities. No pneumothorax. MEDIASTINUM AND HILAR STRUCTURES: No masses. Contour normal. HEART AND VASCULAR STRUCTURES: The heart is normal limit in size. There is vascular congestion and i nterstitial edema. BONES: Degenerative changes are noted at the spine. HARDWARE: None in the chest. IMPRESSION: Emphysema. Vascular congestion and interstitial edema. Small bilateral pleural effusio ns with bibasilar airspace opacities, may represent atelectasis or pneumonia. TECHNICAL DOCUMENTATION: JOB ID: [id number] [employer]- All Rights Reserved Reading location - IP/workstation name: [email or web address]
[2017-09-04] MEDS: PANTOPRAZOLE SODIUM 40 MG VIAL IV ONE (18:53)
[2017-09-04] MEDS: ACETAMINOPHEN 325 MG TABLET PO ONE (18:55)
[2017-09-04] MEDS: PANTOPRAZOLE SODIUM 40 MG VIAL IV PRN (18:57)
[2017-09-04] MEDS: CEFEPIME 2 GM/D5W RTU 2 GM/50 ML RTUPB IV ONE (20:54)
[2017-09-04 22:27] VITALS: BP 97/66
== END 2017-09-04 22:40 | disposition short-term general hospital (02) ==
LOC: ER 15:32
DX: K92.2 Gastrointestinal hemorrhage, unspecified (principal); I95.9 Hypotension, unspecified; D72.829 Elevated white blood cell count, unspecified; R19.7 Diarrhea, unspecified; J81.1 Chronic pulmonary edema; R00.0 Tachycardia, unspecified; L89.899 Pressure ulcer of other site, unspecified stage; R15.9 Full incontinence of feces; E11.9 Type 2 diabetes mellitus without complications; I10 Essential (primary) hypertension; J44.9 Chronic obstructive pulmonary disease, unspecified; Z99.81 Dependence on supplemental oxygen; Z66 Do not resuscitate; Z88.6 Allergy status to analgesic agent; Z88.8 Allergy status to other drugs, medicaments and biological substances; Z90.49 Acquired absence of other specified parts of digestive tract
CPT/HCPCS: 99285; 96361; 96365; 96366; 96367; 86900; 86901; 36415; 36430; 86850; 85025; 85610; 85730; 82272; 80053; 86920; 80061; 71045; P9016; A9270; C9113; J7030; J0692; S0164

== ENCOUNTER 2017-09-13 16:44 | Emergency (ER) | payer MEDICARE ==
--- NOTE | 2017-09-13 18:43 | ER Document Report ---
ED General - General Chief Complaint: Abnormal Lab Results Stated Complaint: ABNORMAL LABS Time Seen by Provider: 09/13/17 17:24 Mode of Arrival: Medic Information source: Relative, Outside Facility Records Notes: This patient apparently has been a resident at [facility] for the past couple of months. She has had frequent visits to the local emergency department and several transfers from ED to the inpatient service at [facility]. The most recent such transfer was last week. She apparently was treated for pneumonia and had a limited GI workup to determine the cause of her anemia. She is she also had transfusion during that admission. Patient apparently was intended to be transferred back to [facility], but when the transfer was attempted, the staff at [facility] noted that her hemoglobin was less than 8 and, for that reason, refused to accept her transfer. She subsequently was brought to the emergency department for admission and transfusion, or for an alternate disposition to be arranged. She is here with her daughter, who has medical power of estate planning attorney. The patient is very much alert and appears competent to make decisions on her behalf at this time. TRAVEL OUTSIDE OF THE [place] IN LAST 30 DAYS: No - HPI Patient complains to provider of: ANEMIA Onset: Other - LONG-STANDING, CHRONIC, VERIFIED THIS A.M. BY LAB @ [facility]. Onset/Duration: Gradual Quality of pain: No pain Associated symptoms: Weakness Exacerbated by: Denies Relieved by: Denies Similar symptoms previously: Yes Recently seen / treated by doctor: Yes - SEE NOTE ABOVE - Related Data Allergies/Adverse Reactions: aspirin Allergy (Verified 07/21/17 18:54) NSAIDS (Non-Steroidal Anti-Inflamma Allergy (Verified 07/21/17 18:54) Past Medical History - General Information source: Relative, Transfer Record, Outside Facility Records - Social History Smoking Status: Never Smoker Cigarette use (# per day): No Chew tobacco use (# tins/day): No Frequency of alcohol use: None Drug Abuse: None Lives with: Correction Family History: Reviewed & Not Pertinent Patient has suicidal ideation: No Patient has homicidal ideation: No - Past Medical History Cardiac Medical History: Reports: Hx Hypertension Pulmonary Medical History: Reports: Hx COPD Neurological Medical History: Reports: None Endocrine Medical History: Reports: Hx Diabetes Mellitus Type 2 Renal/ Medical History: Reports: None. Denies: Hx Peritoneal Dialysis GI Medical History: Reports: Hx Gastritis, Hx Ulcer Musculoskeletal Medical History: Reports None Skin Medical History: Reports Other - DECUBITI Psychiatric Medical History: Reports: None Past Surgical History: Reports: Hx Abdominal Surgery - Hernia repair x3, Hx Cholecystectomy Review of Systems - Review of Systems Constitutional: Weakness EENT: Other - HEARING LOSS Cardiovascular: No symptoms reported Respiratory: No symptoms reported Gastrointestinal: No symptoms reported Genitourinary: Incontinence - CHRONIC Female Genitourinary: Post menopausal Musculoskeletal: No symptoms reported Skin: See HPI Neurological/Psychological: See HPI Physical Exam - Vital signs Vitals: Resp BP 28 H 117/61 09/13/17 16:56 09/13/17 16:56 Interpretation: Tachypneic. No: Hypotensive, Tachycardic, Febrile - General General appearance: Appears well, Alert In distress: None - HEENT Head: Normocephalic Eyes: Pale conjunctiva Ears: Normal Nasal: Normal Mouth/Lips: Normal Mucous membranes: Normal - Respiratory Respiratory status: No respiratory distress - Cardiovascular Rhythm: Irregularly irregular - Abdominal Inspection: Normal Distension: No distension - Extremities General upper extremity: Normal inspection General lower extremity: Normal inspection - Neurological Neuro grossly intact: Yes - Psychological Associated symptoms: Normal affect, Normal mood - Skin Skin Temperature: Warm Skin Moisture: Dry Skin Color: Normal Skin Turgor: Elastic Skin irregularity: Decubitus ulcer - SACRAL Course - Re-evaluation Re-evalutation: 09/13/17 18:48 Treatment options were explained to patient and her daughter. After a short private conversation, the patient and daughter both agreed that another transfusion would be futile, and of a firmly declined such treatment. - Vital Signs Vital signs: Temp Pulse Resp BP Pulse Ox 98.2 F 25 H 117/61 09/13/17 17:00 09/13/17 17:00 09/13/17 16:56 Discharge - Discharge Clinical Impression: Anemia Qualifiers: Anemia type: iron deficiency Iron deficiency anemia type: chronic blood loss Qualified Code(s): D50.0 - Iron deficiency anemia secondary to blood loss ( chronic) Condition: Stable Referrals: TORITO CISNEROS DO [Primary Care Provider] - Follow up as needed
[2017-09-13 20:25] LABS: ABSOLUTE BASOPHILS # (AUTO) 0.2 10^3/uL (0.0-0.2); ABSOLUTE EOSINOPHILS # (AUTO) 0.5 10^3/uL (0.0-0.6); ABSOLUTE LYMPHOCYTES (AUTO) 2.2 10^3/uL (0.5-4.7); ABSOLUTE MONOCYTES (AUTO) 0.9 10^3/uL (0.1-1.4); ABSOLUTE NEUT (AUTO) 8.6 10^3/uL (1.7-8.2); BASOPHILS % (AUTO) 1.4 % (0-2); EOSINOPHILS % (AUTO) 3.7 % (0-6); HEMATOCRIT 28.4 % (36.0-47.0); HEMOGLOBIN 9.4 g/dL (12.0-15.5); LYMPHOCYTES % (AUTO) 18.2 % (13-45); MEAN CORPUSCULAR HEMOGLOBIN 28.1 pg (27.0-33.4); MEAN CORPUSCULAR HGB CONC 33.1 g/dL (32.0-36.0); MEAN CORPUSCULAR VOLUME 85 fl (80-97); MONOCYTES % (AUTO) 7.3 % (3-13); PLATELET COUNT 305 10^3/uL (150-450); RED BLOOD COUNT 3.34 10^6/uL (3.72-5.28); RED CELL DISTRIBUTION WIDTH 16.9 % (11.5-14.0); SEGMENTED NEUTROPHILS % (AUTO) 69.4 % (42-78); TOTAL CELLS COUNTED % (AUTO) 100 %; WHITE BLOOD COUNT 12.3 10^3/uL (4.0-10.5)
[2017-09-13 20:36] LABS: ALANINE AMINOTRANSFERASE 31 U/L (9-52); ALBUMIN 1.9 g/dL (3.5-5.0); ALKALINE PHOSPHATASE 148 U/L (38-126); ANION GAP 6 (5-19); ASPARTATE AMINO TRANSFERASE 32 U/L (14-36); BILIRUBIN,DIRECT 0.2 mg/dL (0.0-0.4); BILIRUBIN,TOTAL 0.5 mg/dL (0.2-1.3); BLOOD UREA NITROGEN 14 mg/dL (7-20); CALCIUM 7.8 mg/dL (8.4-10.2); CARBON DIOXIDE 20 mmol/L (22-30); CHLORIDE 118 mmol/L (98-107); GLUCOSE 77 mg/dL (75-110); POTASSIUM 4.1 mmol/L (3.6-5.0); SODIUM 143.6 mmol/L (137-145); TOTAL PROTEIN 6.1 g/dL (6.3-8.2)
--- NOTE | 2017-09-14 10:07 | ER Document Report ---
Doctor's Note Notes: 09/14/17 10:07 Patient was signed out from prior shift. There is some issues with the shelter accepting the patient back. Globin is above 9. Patient seems to be asymptomatic family did not want to give any additional blood transfusions this is palliative care comfort care only. cylinder worker has seen the patient this morning and the shelter was accepted the patient back.
[2017-09-14 12:38] VITALS: BP 115/67
== END 2017-09-14 12:38 | disposition home health service (06) ==
LOC: ER 16:44
DX: D50.0 Iron deficiency anemia secondary to blood loss (chronic) (principal); L89.159 Pressure ulcer of sacral region, unspecified stage; E11.9 Type 2 diabetes mellitus without complications; I10 Essential (primary) hypertension; R53.1 Weakness; J44.9 Chronic obstructive pulmonary disease, unspecified; R32 Unspecified urinary incontinence; H91.90 Unspecified hearing loss, unspecified ear; Z87.01 Personal history of pneumonia (recurrent); Z88.6 Allergy status to analgesic agent; Z88.8 Allergy status to other drugs, medicaments and biological substances
CPT/HCPCS: 36415; 80053; 82962; 85025; 99285